=== PATIENT | male | born 1995 | race Caucasian/White ===

== ENCOUNTER 2016-11-25 07:16 | Day surgery (SDC) | payer OTHER ==
[~2016-11-25] VITALS: Ht 177.8 cm; Wt 67.5 kg
[2016-11-25 08:05] VITALS: BP 105/66
[2016-11-25] MEDS ORDERED: HYDR-3138 PO (08:16)
[2016-11-25] MEDS ORDERED: LACTATED RINGERS 1,000 ML IV SCH (08:17)
[2016-11-25] MEDS ORDERED: LIDOCAINE 1%, 2ML ONE (08:21)
[2016-11-25] MEDS ORDERED: LIDOCAINE 1%, 2ML SQ PRN (08:30)
[2016-11-25] MEDS ORDERED: NEOSPORIN OINT, 15GM ONE (08:38)
[2016-11-25] MEDS ORDERED: BUPIVACAINE/PF 0.5% ONE (08:38)
[2016-11-25] MEDS ORDERED: FENTANYL PF 250 MCG/5ML ONE (08:49)
[2016-11-25] MEDS ORDERED: BUPIVACAINE/PF-EPI 0.25% 1:200K ONE (09:15)
[2016-11-25] MEDS ORDERED: MIDAZOLAM 1 MG/ML, 2ML IV PRN (09:30)
[2016-11-25] MEDS ORDERED: LABETALOL 5MG/ML, 20ML IV PRN (09:30)
[2016-11-25] MEDS ORDERED: FENTANYL PF 100 MCG/2ML IV PRN (09:30)
[2016-11-25] MEDS ORDERED: HYDROmorphone 1 MG/ML, 1ML IV PRN (09:30)
[2016-11-25] MEDS ORDERED: OXYcodone 5 MG/5 ML ORAL.SOL UDC PO PRN (09:30)
[2016-11-25] MEDS ORDERED: PROMETHAZINE 25 MG/ML, 1ML IV PRN (09:30)
[2016-11-25] MEDS ORDERED: ONDANSETRON 2MG/ML, 2ML IVPush PRN (09:30)
[2016-11-25] MEDS ORDERED: MEPERIDINE/PF 25MG/0.5ML IVPush PRN (09:30)
[2016-11-25] MEDS ORDERED: KETOROLAC 30 MG/1 ML ONE (11:06)
[2016-11-25] MEDS ORDERED: ACETAMINOPHEN 325 MG TABLET ONE (11:06)
[2016-11-25] MEDS ORDERED: OXYcodone 5 MG/5 ML ORAL.SOL UDC ONE (11:06)
[2016-11-25] MEDS ORDERED: FENTANYL PF 100 MCG/2ML ONE (11:17)
[2016-11-25] MEDS ORDERED: ACETAMINOPHEN 325 MG TABLET PO PRN (11:30)
[2016-11-25] MEDS ORDERED: KETOROLAC 30 MG/1 ML IV PRN (11:30)
[2016-11-25] MEDS ORDERED: ONDANSETRON 2MG/ML, 2ML ONE (15:52)
[2016-11-25] MEDS ORDERED: CEFAZOLIN 1,000 MG ONE (15:52)
[2016-11-25] MEDS ORDERED: PROPOFOL 10 MG/ML, 20ML ONE (15:52)
[2016-11-25] MEDS ORDERED: METOCLOPRAMIDE 5 MG/ML, 2ML ONE (15:52)
[2016-11-25] MEDS ORDERED: DEXAMETHASONE 4 MG/ML, 1ML ONE (15:52)
== END 2016-11-25 13:20 | disposition home or self-care (01) ==
LOC: OUT 07:16 → EDSEX 09:00 → OUT 13:20
PROVIDERS: ATTEND Orthopaedic Surgery
DX: S42.021A Displaced fracture of shaft of right clavicle, initial encounter for closed fracture (principal); F17.210 Nicotine dependence, cigarettes, uncomplicated; W18.30XA Fall on same level, unspecified, initial encounter; Y93.9 Activity, unspecified; Y92.9 Unspecified place or not applicable; Y99.9 Unspecified external cause status
CPT/HCPCS: 23515; 73000; 76000; C1713; J0690; J1100; J1885; J2405; J2704; J2765; J3010; J3490; J7120